=== PATIENT | male | born 1990 | race Caucasian/White ===

== ENCOUNTER → 2018-07-09 | Emergency (ER) | payer OTHER ==
[~2018-07-09] VITALS: Ht 182.9 cm; Wt 63.5 kg
[~2018-07-09] MED LIST: ALLEGRA30 MG PO; CELEXA 20 MG TA20 M1; LYRICA25
[2018-07-09 23:07] VITALS: BP 115/68
== END ==
LOC: M.ERS 23:03
DX: Z71.1 Person with feared health complaint in whom no diagnosis is made (principal); F32.9 Major depressive disorder, single episode, unspecified; Z88.6 Allergy status to analgesic agent